=== PATIENT | female | born 1980 | race Caucasian/White ===

== ENCOUNTER 2017-06-20 00:51 | Emergency (ER) | payer SELFPAY ==
[~2017-06-20] VITALS: Ht 175.3 cm; Wt 88.6 kg
[2017-06-20 01:21] VITALS: Ht 175.3 cm; Wt 88.6 kg
[2017-06-20] MEDS ORDERED: ONDANSETRON 4 MG INJ IV STA (04:00)
[2017-06-20] MEDS ORDERED: morphine 4 MG/ML VIAL IV STA (04:00)
[2017-06-20] MEDS ORDERED: SOD CHLORIDE 0.9% 1,000 ML IV STA (04:00)
[2017-06-20 04:34] LABS: BASOPHILS % 0.4 % (0.0-2.0); EOSINOPHILS # 0.2 10^3/ul (0.0-0.5); EOSINOPHILS % 2.2 % (0.0-7.0); HEMATOCRIT 39.5 % (37.0-47.0); HEMOGLOBIN 12.8 g/dl (12.0-16.0); LYMPHOCYTES # 4.2 10^3/ul (0.8-2.9); LYMPHOCYTES % 46.6 % (15.0-51.0); MEAN CORPUSCULAR HEMOGLOBIN 31.1 pg (29.0-33.0); MEAN CORPUSCULAR HGB CONC 32.4 g/dl (32.0-37.0); MEAN CORPUSCULAR VOLUME 95.9 fl (82.0-101.0); MEAN PLATELET VOLUME 9.2 fl (7.4-10.4); MONOCYTE # 0.6 10^3/ul (0.3-0.9); NEUTROPHILS % 44.6 % (39.0-77.0); PLATELET COUNT 345 10^3/UL (140-415); RED BLOOD COUNT 4.12 10^6/ul (4.20-5.40); RED CELL DISTRIBUTION WIDTH 12.9 % (11.5-14.5); WHITE BLOOD COUNT 9.1 10^3/ul (4.8-10.8)
[2017-06-20 04:37] LABS: ADD UMIC NO; UR ASCORBIC ACID NEGATIVE (NEGATIVE); UR BILIRUBIN (Dip) NEGATIVE (NEGATIVE); UR BLOOD (Dip) NEGATIVE (NEGATIVE); UR CLARITY CLEAR (CLEAR); UR COLOR YELLOW (YELLOW); UR GLUCOSE (Dip) NEGATIVE (NEGATIVE); UR KETONES (Dip) NEGATIVE (NEGATIVE); UR LEUKOCYTE ESTERASE (Dip) NEGATIVE Leu/ul (NEGATIVE); UR NITRITE (Dip) NEGATIVE (NEGATIVE); UR SPECIFIC GRAVITY (Dip) 1.023 (1.003-1.030); UR TOTAL PROTEIN (Dip) NEGATIVE (NEGATIVE); UR UROBILINOGEN (Dip) 1+ mg/dL (NEGATIVE)
[2017-06-20 04:46] LABS: ALBUMIN 3.6 g/dl (3.3-4.9); ALBUMIN/GLOBULIN RATIO 1.5; CREATININE 0.63 mg/dl (0.44-1.00); POTASSIUM 3.4 mmol/L (3.5-5.1)
--- NOTE | 2017-06-20 04:47 | RADRPT ---
PROCEDURE: CT Abdomen and pelvis without contrast. CLINICAL INDICATION: Abdominal pain. TECHNIQUE: CT scan of the abdomen and pelvis was performed on a multi-detector high-resolution CT scanner. Contiguous axial images were obtained from the lung bases to the ischial tuberosities wit hout intravenous contrast. Coronal and sagittal reformatted images were also obtained. Images were reviewed on the PACS workstation. One or more of the following dose reduction techniques were used: - Automated exposure control. - Adjustment of the mA and/or kV according to patient size. - Use of iterative reconstruction technique. Exam CTD/vol = 21.37 mGy. Total exam DLP = 1240.59 mGy-cm. COMPARISON: None. FINDINGS: Evaluation of the lung bases demonstrates mild bibasilar atelectasis. Abdomen: The liver is normal in size. There is no focal mass or dilatation of the biliary tree. T he gallbladder is not distended. The spleen, pancreas and bilateral adrenal glands are within luiz l limits. Bilateral kidneys are normal in size with no contour deforming mass identified. There is no radiopaque renal or ureteral calculus identified. There is no hydronephrosis or hydroureter. T here is no retroperitoneal adenopathy. The abdominal aorta is of normal caliber. There is no abnormal bowel wall thickening or distension. There is no bowel obstruction or free air . There are postsurgical changes within the cecum. The appendix is absent. There is no diverticulo sis or diverticulitis. There is no ascites. Pelvis: The bladder is unremarkable. The uterus and adnexa are within normal limits. There is no significant pelvic adenopathy or free fluid. Evaluation of the osseous structures demonstrates no suspicious lytic or blastic lesion. IMPRESSION: No acute abnormality identified within the abdomen and pelvis. .Wagner Myers MD, MD Date Time Electronically viewed and signed by .Wagner Myers MD, MD on 06/20/2017 04:47 .T/
[2017-06-20] MEDS ORDERED: KETOROLAC 30 MG INJ IV STA (05:40)
--- NOTE | 2017-06-20 05:52 | ERD ---
ER Documentation Chief Complaint Date/Time DATE: 06/20/17 TIME: 05:51 Chief Complaint INCREASING MID LOWER AP X2 DAYS. +NAUSEA DENIES V/D HPI 37-year-old female with increasing mid lower abdominal pain for 2 days. She also has nausea. Mild loose stools but no true diarrhea. No vomiting. Pain mild to moderate intensity. No other current complaints.No changes in bowel or bladder habits ROS All systems reviewed and are negative except as per history of present illness. Allergies Allergies: Coded Allergies: No Known Allergy (Unverified , 06/20/17) PMhx/Soc Medical and Surgical Hx: pt denies Medical Hx, pt denies Surgical Hx Hx Alcohol Use: No Hx Substance Use: No Hx Tobacco Use: No Smoking Status: Never smoker Physical Exam Vitals Vital Signs Date Time Temp Pulse Resp B/P Pulse Ox O2 Delivery O2 Flow Rate FiO2 06/20/17 01:21 97.5 53 18 107/55 99 Physical Exam Const: [] Head: Atraumatic Eyes: Normal Conjunctiva ENT: Normal External Ears, Nose and Mouth. Neck: Full range of motion..~ No meningismus. Resp: Clear to auscultation bilaterally Cardio: Regular rate and rhythm, no murmurs Abd: Soft, non tender, non distended. Normal bowel sounds Skin: No petechiae or rashes Back: No midline or flank tenderness Ext: No cyanosis, or edema Neur: Awake and alert Psych: Normal Mood and Affect Result Diagram: 06/20/1740906/20/17409 Results 24 hrs Laboratory Tests Test 06/20/17 04:10 White Blood Count 9.110^3/ul Red Blood Count 4.1210^6/ul Hemoglobin 12.8g/dl Hematocrit 39.5% Mean Corpuscular Volume 95.9fl Mean Corpuscular Hemoglobin 31.1pg Mean Corpuscular Hemoglobin Concent 32.4g/dl Red Cell Distribution Width 12.9% Platelet Count 46053^3/UL Mean Platelet Volume 9.2fl Neutrophils % 44.6% Lymphocytes % 46.6% Monocytes % 6.0% Eosinophils % 2.2% Basophils % 0.4% Nucleated Red Blood Cells % 0.0/100WBC Neutrophils # (Manual) 4.110^3/ul Lymphocytes # 4.210^3/ul Monocytes # 0.610^3/ul Eosinophils # 0.210^3/ul Basophils # 0.010^3/ul Nucleated Red Blood Cells # 0.010^3/ul Urine Color YELLOW Urine Clarity CLEAR Urine pH 6.0 Urine Specific [place] 1.023 Urine Ketones NEGATIVEmg/dL Urine Nitrite NEGATIVEmg/dL Urine Bilirubin NEGATIVEmg/dL Urine Urobilinogen 1+mg/dL Urine Leukocyte Esterase NEGATIVELeu/ul Urine Hemoglobin NEGATIVEmg/dL Urine Glucose NEGATIVEmg/dL Urine Total Protein NEGATIVEmg/dl Sodium Level 142mmol/L Potassium Level 3.4mmol/L Chloride Level 105mmol/L Carbon Dioxide Level 31mmol/L Anion Gap 9 Blood Urea Nitrogen 10mg/dl Creatinine 0.63mg/dl Glucose Level 84mg/dl Calcium Level 9.0mg/dl Total Bilirubin 0.0mg/dl Direct Bilirubin 0.00mg/dl Indirect Bilirubin 0.0mg/dl Aspartate Amino Transf (AST/SGOT) 18IU/L Alanine Aminotransferase (ALT/SGPT) 31IU/L Alkaline Phosphatase 64IU/L Total Protein 6.0g/dl Albumin 3.6g/dl Globulin 2.40g/dl Albumin/Globulin Ratio 1.50 Lipase 66U/L Current Medications Medications (Trade) Dose Ordered Sig/Farrah Route PRN Reason Start Time Stop Time Status Last Admin Dose Admin Sodium Chloride (NS) 1,000 ml @ 1,000 mls/hr Q1H STAT IV 06/20/17 04:00 06/20/17 04:59 DC 06/20/17 04:54 Morphine Sulfate (morphine) 4 mg ONCE STAT IV 06/20/17 04:00 06/20/17 04:15 DC 06/20/17 04:54 Ondansetron HCl (Zofran Inj) 4 mg ONCE STAT IV 06/20/17 04:00 06/20/17 04:15 DC 06/20/17 04:54 Ketorolac Tromethamine (Toradol) 30 mg ONCE STAT IV 06/20/17 05:40 06/20/17 05:41 DC Procedures/MDM CBC: [no e/o of systemic infection or severe anemia] CMP: [no e/o severe acidosis, alkalosis, renal failure, diabetic ketoacidosis, liver disease] Lipase: [no e/o pancreatitis] PT/INR: [normal coagulation] Urine: [no e/o acute infection or hematuria] Medical decision-m[age] year female with lower abdominal pain with loose stools. This likely early diverticulitis. At this point clinically stable. Patient be discharged home ciprofloxacin for antibiotic coverage along with [place] and Zofran. Follow-up in 8 hours for serial abdominal exams. Return to PCP for follow-up otherwise Departure Diagnosis: Primary Impression: Abdominal pain Abdominal location: unspecified location Qualified Code: R10.9 - Abdominal pain, unspecified abdominal location Condition: Stable KATIA LOPEZ Jun 20, 2017 05:52
[2017-06-20] MEDS ORDERED: HYDR-902 PO (05:53)
[2017-06-20] MEDS ORDERED: CIPR500T4 PO (05:53)
[2017-06-20] MEDS ORDERED: ONDA4TAB14 PO (05:53)
== END 2017-06-20 06:16 | disposition home or self-care (01) ==
LOC: E/R 00:51
DX: R10.30 Lower abdominal pain, unspecified (principal); R11.0 Nausea
CPT/HCPCS: 36415; 74176; 80053; 81003; 83690; 85025; 96374; 96375; 99285; J1885; J2270; J2405; J7030